=== PATIENT | male | born 1965 | race Caucasian/White ===

== ENCOUNTER 2016-04-20 23:13 | Inpatient (IN) | payer OTHER ==
[~2016-04-20] VITALS: Ht 180.3 cm; Wt 82.2 kg
[~2016-04-20 23:13] MED LIST: ACIPHEX20 MG PO; ATIVAN1 MG PO; BACLOFEN10 MG PO; CLONAZEPAM0.5 MG PO; DILAUDID 2MG TAB2 MG PO; PHENERGAN 25 TA25 MG PO; RITALIN PO
[2016-04-20 23:46] LABS: BASO % 0.2 % (0.0-2.0); EOS % 0.3 % (0-4.0); GRAN % 81.2 % (42.2-75.2); HEMATOCRIT 44.4 % (42.0-52.0); HEMOGLOBIN 16.2 g/dl (13.5-18.0); LYMPH # 1.6 (1.2-3.4); LYMPH % 11.9 % (20.0-51.0); MEAN CELL VOLUME 104 fl (80.0-100.0); MEAN CORPUSCULAR HEMOGLOBIN 38 pg (27.0-31.0); MEAN CORPUSCULAR HGB CONC 37 g/dl (33.0-37.0); MEAN PLATELET VOLUME 9.8 fl (7.4-10.4); MONO # 0.8 (0.1-0.6); PLATELET COUNT 276 K/mm3 (130-400); RED BLOOD COUNT 4.29 M/mm3 (4.20-5.60); REDCELL DISTRIBUTION WIDTH-CV 13.6 % (11.5-14.5); WHITE BLOOD COUNT 13.6 K/mm3 (4.8-10.8)
[2016-04-21] VITALS (8 sets, daily range): BP systolic 111–129; BP diastolic 67–80; PULSE 67–100; TEMP 98.1–100.2
[2016-04-21 00:05] LABS: INR 1.5 (0.8-3.0); PROTHROMBIN TIME 16.8 SECONDS (9.7-12.8)
[2016-04-21 00:08] LABS: PARTIAL THROMBOPLASTIN TIME 37.3 SECONDS (26.0-37.0)
[2016-04-21 00:12] LABS: pH GASTRIC CONTENTS 2
[2016-04-21 00:17] LABS: ADJUSTED CALCIUM 9.2 mg/dL (8.4-10.2); ALBUMIN 3.8 gm/dL (3.5-5.0); BILIRUBIN,TOTAL 2.3 mg/dL (0.0-1.0); CREATININE, serum 0.62 mg/dL (0.66-1.25); POTASSIUM 3.5 mmol/L (3.4-5.0); TOTAL PROTEIN 7.7 gm/dL (6.4-8.2)
[2016-04-21] MEDS ORDERED: METHADONE H10 MG/TAB PO (02:54)
[2016-04-21] MEDS ORDERED: KLONOPIN 0.5MG0.5 MG PO (02:56)
[2016-04-21] MEDS ORDERED: RITALIN LA30 MG PO (02:56)
[2016-04-21] MEDS ORDERED: RITALIN 20M20 MG/TAB PO (06:08)
[2016-04-21 11:47] LABS: PH 7 (5-8); SQUAMOUS EPITHELIAL 0-2 /hpf; URINE APPEARANCE Clear; URINE BACTERIA None Seen /hpf; URINE BILIRUBIN Positive (NEGATIVE); URINE BLOOD Negative (NEGATIVE); URINE COLOR Amber; URINE GLUCOSE Negative (NEGATIVE); URINE KETONE Negative (NEGATIVE); URINE RBC 0-2 /hpf; URINE UROBILINOGEN >=4.0 mg/dL (NEGATIVE); URINE WBC None Seen /hpf
[2016-04-21 12:10] LABS: AMPHETAMINE URINE NEGATIVE; BARBITURATES URINE NEGATIVE; BENZODIAZEPINES URINE POSITIVE; BUPRENORPHINE URINE NEGATIVE; METHADONE URINE POSITIVE; OPIATES URINE POSITIVE; OXYCODONE URINE NEGATIVE; PHENCYCLIDINE URINE NEGATIVE; PROPOXYPHENE URINE NEGATIVE; THC CANNABINOIDS URINE POSITIVE
[2016-04-21] MEDS ORDERED: PRIL40 PO (15:47)
[2016-04-21] MEDS ORDERED: FOLIC ACID 11 MG/TA1 PO (15:48)
[2016-04-21] MEDS ORDERED: NATURE'S BLEND100 M2 PO (15:48)
[2016-04-21 16:10] LABS: MEAN CELL VOLUME 105 fl (80.0-100.0); MEAN CORPUSCULAR HGB CONC 36 g/dl (33.0-37.0); MEAN PLATELET VOLUME 9.9 fl (7.4-10.4); REDCELL DISTRIBUTION WIDTH-CV 13.7 % (11.5-14.5); WHITE BLOOD COUNT 8.2 K/mm3 (4.8-10.8)
[2016-04-21 16:12] LABS: HEMOGLOBIN 12.4 g/dl (13.5-18.0); MEAN CORPUSCULAR HEMOGLOBIN 38 pg (27.0-31.0)
[2016-04-21 16:13] LABS: HEMATOCRIT 34.5 % (42.0-52.0)
[2016-04-21 16:14] LABS: PLATELET COUNT 165 K/mm3 (130-400)
[2016-04-22] VITALS (8 sets, daily range): BP systolic 87–141; BP diastolic 52–94; PULSE 70–170; TEMP 97.8–99
[2016-04-22 07:44] LABS: BASO % 0.4 % (0.0-2.0); EOS # 0.2 (0.0-0.7); EOS % 2.4 % (0-4.0); GRAN # 4.7 (1.4-6.5); GRAN % 63.2 % (42.2-75.2); HEMOGLOBIN 12.2 g/dl (13.5-18.0); LYMPH # 1.9 (1.2-3.4); LYMPH % 25.5 % (20.0-51.0); MEAN CELL VOLUME 108 fl (80.0-100.0); MEAN CORPUSCULAR HEMOGLOBIN 37 pg (27.0-31.0); MEAN CORPUSCULAR HGB CONC 35 g/dl (33.0-37.0); MEAN PLATELET VOLUME 10.1 fl (7.4-10.4); MONO # 0.6 (0.1-0.6); MONO % 8.2 % (1.7-9.3); PLATELET COUNT 175 K/mm3 (130-400); RED BLOOD COUNT 3.28 M/mm3 (4.20-5.60); REDCELL DISTRIBUTION WIDTH-CV 13.5 % (11.5-14.5); WHITE BLOOD COUNT 7.5 K/mm3 (4.8-10.8)
[2016-04-22 08:07] LABS: ADJUSTED CALCIUM 9.4 mg/dL (8.4-10.2); ALBUMIN 3.1 gm/dL (3.5-5.0); BILIRUBIN,TOTAL 2.7 mg/dL (0.0-1.0); CALCIUM 8.7 mg/dL (8.4-10.2); CREATININE, serum 0.61 mg/dL (0.66-1.25); PHOSPHOROUS 2.7 mg/dL (2.5-4.5); POTASSIUM 3.8 mmol/L (3.4-5.0); TOTAL PROTEIN 6.7 gm/dL (6.4-8.2)
[2016-04-22 08:47] LABS: HEMATOCRIT 35.4 % (42.0-52.0)
[2016-04-22] MEDS ORDERED: LIBRIUM 25M25 MG/CAP PO (11:24)
== END 2016-04-22 12:54 | disposition home or self-care (01) | DRG 378 ==
LOC: COL.ER 23:13 → MEDICAL 04-21 02:46
PROVIDERS: Emergency Medicine; Internal Medicine; Internal Medicine Gastroenterology; Nurse Practitioner Family
PROC: 0DJ08ZZ Inspection of Upper Intestinal Tract, Via Natural or Artificial Opening Endoscopic (ICD-10-PCS; principal; 2016-04-21 12:00)
DX: K29.21 Alcoholic gastritis with bleeding (principal); F10.239 Alcohol dependence with withdrawal, unspecified; K86.0 Alcohol-induced chronic pancreatitis; D62 Acute posthemorrhagic anemia; K21.0 Gastro-esophageal reflux disease with esophagitis; F90.9 Attention-deficit hyperactivity disorder, unspecified type; F41.9 Anxiety disorder, unspecified; F17.210 Nicotine dependence, cigarettes, uncomplicated
CPT/HCPCS: 99223-AI; 99239; C9113; J1170; J1200; J2060; J2250; J2405; J2765; J3010; J3411; J7030; Q9967

== ENCOUNTER → 2016-04-25 | Outpatient (CLI) | payer OTHER ==
[~2016-04-25] MED LIST changes: +CEPHALEXIN500 M1 PO; +FOLIC ACID 11 MG/TA1 PO; +KLONOPIN 0.5MG0.5 MG PO; +LASIX 20MG TABL20 MG PO; +LIBRIUM 25M25 MG/CAP PO; +METHADONE H10 MG/TAB PO; +NATURE'S BLEND100 M2 PO; +PRIL40 PO; +RITALIN 20M20 MG/TAB PO; +RITALIN LA30 MG PO
[2016-04-25 16:38] LABS: MEAN CELL VOLUME 107 fl (80.0-100.0); MEAN CORPUSCULAR HGB CONC 35 g/dl (33.0-37.0); MEAN PLATELET VOLUME 10.3 fl (7.4-10.4); PLATELET COUNT 202 K/mm3 (130-400); RED BLOOD COUNT 3.07 M/mm3 (4.20-5.60); REDCELL DISTRIBUTION WIDTH-CV 13.5 % (11.5-14.5); WHITE BLOOD COUNT 19.7 K/mm3 (4.8-10.8)
[2016-04-25 16:39] LABS: HEMATOCRIT 32.8 % (42.0-52.0); HEMOGLOBIN 11.6 g/dl (13.5-18.0); MEAN CORPUSCULAR HEMOGLOBIN 38 pg (27.0-31.0)
== END ==
LOC: COL.LAB 16:10
PROVIDERS: Internal Medicine
DX: K92.0 Hematemesis (principal)

== ENCOUNTER → 2016-04-28 | Outpatient (CLI) | payer OTHER ==
[2016-04-28 18:23] LABS: CALCIUM 8.5 mg/dL (8.4-10.2); CREATININE, serum 0.59 mg/dL (0.66-1.25); POTASSIUM 3.6 mmol/L (3.4-5.0)
== END ==
LOC: COL.LAB 16:53
PROVIDERS: Internal Medicine
DX: E87.1 Hypo-osmolality and hyponatremia (principal)

== ENCOUNTER 2016-05-07 20:22 | Emergency (ER) | payer OTHER ==
[~2016-05-07] VITALS: Ht 180.3 cm; Wt 81.4 kg
[~2016-05-07 20:22] MED LIST changes: -CEPHALEXIN500 M1 PO; -LASIX 20MG TABL20 MG PO
[2016-05-07 20:28] VITALS: TEMP 97.3
[2016-05-07 21:27] LABS: BASO % 0.3 % (0.0-2.0); EOS # 0.1 (0.0-0.7); EOS % 1.4 % (0-4.0); GRAN % 72.1 % (42.2-75.2); HEMATOCRIT 31.6 % (42.0-52.0); HEMOGLOBIN 10.9 g/dl (13.5-18.0); LYMPH # 1.8 (1.2-3.4); LYMPH % 18.4 % (20.0-51.0); MEAN CELL VOLUME 108 fl (80.0-100.0); MEAN CORPUSCULAR HEMOGLOBIN 37 pg (27.0-31.0); MEAN CORPUSCULAR HGB CONC 35 g/dl (33.0-37.0); MEAN PLATELET VOLUME 9.7 fl (7.4-10.4); MONO # 0.7 (0.1-0.6); MONO % 7.4 % (1.7-9.3); PLATELET COUNT 303 K/mm3 (130-400); RED BLOOD COUNT 2.93 M/mm3 (4.20-5.60); REDCELL DISTRIBUTION WIDTH-CV 13.4 % (11.5-14.5); WHITE BLOOD COUNT 9.7 K/mm3 (4.8-10.8)
[2016-05-07 21:31] LABS: INR 1.3 (0.8-3.0); PROTHROMBIN TIME 14.9 SECONDS (9.7-12.8)
[2016-05-07 21:40] LABS: ADJUSTED CALCIUM 9.2 mg/dL (8.4-10.2); BILIRUBIN,TOTAL 1.7 mg/dL (0.0-1.0); CALCIUM 8.4 mg/dL (8.4-10.2); CREATININE, serum 0.55 mg/dL (0.66-1.25); POTASSIUM 3.8 mmol/L (3.4-5.0); TOTAL PROTEIN 6.6 gm/dL (6.4-8.2)
[2016-05-07 21:47] LABS: PH 6 (5-8); SQUAMOUS EPITHELIAL 0-2 /hpf; URINE APPEARANCE Clear; URINE BACTERIA None Seen /hpf; URINE BILIRUBIN Negative (NEGATIVE); URINE BLOOD Negative (NEGATIVE); URINE COLOR Amber; URINE GLUCOSE Negative (NEGATIVE); URINE KETONE Negative (NEGATIVE); URINE RBC 0-2 /hpf; URINE UROBILINOGEN >=4.0 mg/dL (NEGATIVE); URINE WBC 0-2 /hpf
[2016-05-07] MEDS ORDERED: CEPHALEXIN500 M1 PO (22:39)
[2016-05-07] MEDS ORDERED: LASIX 20MG TABL20 MG PO (22:39)
[2016-05-07 23:00] VITALS: BP 110/71; PULSE 73
== END 2016-05-07 23:05 | disposition home or self-care (01) ==
LOC: COL.ER 20:22
PROVIDERS: Emergency Medicine
DX: L03.115 Cellulitis of right lower limb (principal); R60.0 Localized edema; D64.9 Anemia, unspecified; K76.9 Liver disease, unspecified

== ENCOUNTER → 2018-08-11 | Outpatient (REF) ==
[~2018-08-11] MED LIST changes: +CEPHALEXIN500 M1 PO; +LASIX 20MG TABL20 MG PO
== END ==
LOC: COL.LAB 23:06
DX: Z02.83 Encounter for blood-alcohol and blood-drug test (principal)

== ENCOUNTER 2023-03-10 20:55 | Emergency (ER) | payer OTHER ==
[~2023-03-10] VITALS: Ht 180.3 cm; Wt 86.4 kg
[2023-03-10 21:01] VITALS: TEMP 99
[2023-03-10] MEDS ORDERED: AMOXICILLIN 8751 TAB PO (21:58)
[2023-03-10 22:08] VITALS: BP 130/81; PULSE 98
== END 2023-03-10 22:08 | disposition home or self-care (01) ==
LOC: COL.ER 20:55
DX: K04.7 Periapical abscess without sinus (principal); F17.200 Nicotine dependence, unspecified, uncomplicated

== ENCOUNTER → 2023-12-03 | Outpatient (CLI) | payer OTHER ==
[~2023-12-03] MED LIST changes: +AMOXICILLIN 8751 TAB PO; +Iohexol 300 - 100 ML VIAL IV ONE; +NS 100 ML IV SCH
== END ==
LOC: COL.RAD 13:12
DX: K80.20 Calculus of gallbladder without cholecystitis without obstruction (principal); N28.89 Other specified disorders of kidney and ureter; K86.89 Other specified diseases of pancreas; K42.9 Umbilical hernia without obstruction or gangrene; R91.8 Other nonspecific abnormal finding of lung field
CPT/HCPCS: Q9967